=== PATIENT | male | born 1955 | race African-American/Black ===

== ENCOUNTER 2018-02-24 16:20 | Emergency (ER) | payer OTHER ==
[~2018-02-24] VITALS: Ht 170.2 cm; Wt 93.4 kg
[~2018-02-24 16:20] MED LIST: ADULT LOW DOSE81 MG PO; CRESTOR20 MG PO; GARLIC OIL1 EAC1 PO; KLOR-CON 10 ER10 MEQ; LASIX 40 MG TAB40 M2; LISINOPRIL5 MG PO; OMEGA-31000 MG PO; PLAVIX 75 MG TA75 MG PO; REGLAN 10 MG TA10 M1 PO; TOPROL XL100 MG PO; TRICOR145 MG PO; ZETIA10 MG PO
[2018-02-24 16:56] LABS: ABSOLUTE BASOPHILS 0.1 thou/uL (0.0-0.2); ABSOLUTE EOSINOPHILS 0.2 thou/uL (0.0-0.7); ABSOLUTE LYMPHOCYTES 2.7 thou/uL (0.8-5.3); ABSOLUTE MONOCYTES 0.5 thou/uL (0.0-1.2); ABSOLUTE NEUTROPHILS 4.2 thou/uL (1.6-8.1); EOSINOPHILS 3.2 %; HEMATOCRIT 42.5 % (42.0-52.0); LYMPHOCYTES 34.8 %; MCH 29.3 pg (26.0-34.0); MCV 88.6 fL (80.0-100.0); MONOCYTES 6.6 %; MPV 8.9 fl. (7.2-11.1); NUCLEATED RBCS 0 /100WBC; PLATELET COUNT* 174 thou/uL (150-400); POLYS 54.4 %; RBC 4.79 mil/uL (4.50-6.00); RDW-CV 13.4 % (10.5-14.5); WBC 7.7 thou/uL (4.0-11.0)
[2018-02-24 17:10] LABS: CALCIUM 8.9 mg/dL (8.5-10.1); CREATININE 1.9 mg/dL (0.6-1.3); POTASSIUM 3.8 mmol/L (3.5-5.1)
[2018-02-24 17:13] LABS: APTT 26.9 Seconds (25.0-31.3); INR 1.1
[2018-02-24 17:17] LABS: ALBUMIN 4.2 g/dL (3.4-5.0); TOTAL BILIRUBIN 0.4 mg/dL (<0.1-1.0); TOTAL PROTEIN 7.6 g/dL (6.4-8.2); TROPONIN-I LEVEL 0.26 ng/mL (<0.06)
[2018-02-24 19:03] VITALS: BP 105/64
--- NOTE | 2018-02-25 10:16 | EKG ---
[place] [address] ELECTROCARDIOGRAM REPORT Name: ALKA CAMEJO JR Room: [facility]#: [id number] Admission: 02/24/18 Attend Phys: Discharge: 02/24/18 Date of : 53 Report #: [id number] THIS REPORT FOR: //name// [facility] ED Test Date: 2018-02-24 Test Time: 16:23:36 Pat Name: ALKA CAMEJO Department: Room: Gender: M Healthcare Market Consultant: MORIAH : 1955 Requested By: India Goode Order Number: [id number] MD: Duke Pulido Measurements Intervals [place] Rate: 69 P: 67 [place]: 164 QRS: -23 QRSD: 94 T: -19 QT: 546 QTc: 585 Interpretive Statements Sinus rhythm Inferior infarct, old Probable anterior infarct, age indeterminate Prolonged QT interval Baseline wander in lead(s) I,III,aVL Compared to ECG 02/02/2013 00:17:27 Prolonged QT interval now present Left anterior fascicular block no longer present Myocardial infarct finding still present Electronically Signed On 02-25-2018 10:16:03 CDT by Duke Pulido [email or web address] <ELECTRONICALLY SIGNED> By: Duke Pulido MD, FACC 02/25/18 1016 1623 1623 Duke Pulido MD, [facility] /EPI
== END 2018-02-24 19:04 | disposition short-term general hospital (02) ==
LOC: M.ERS 16:20
PROVIDERS: Personal Emergency Response Attendant
DX: R74.8 Abnormal levels of other serum enzymes (principal); T82.198A Other mechanical complication of other cardiac electronic device, initial encounter; Y83.8 Other surgical procedures as the cause of abnormal reaction of the patient, or of later complication, without mention of misadventure at the time of the procedure; Y92.89 Other specified places as the place of occurrence of the external cause

== ENCOUNTER 2020-04-01 15:02 | Emergency (ER) | payer OTHER ==
[~2020-04-01] VITALS: Ht 170.2 cm; Wt 99.8 kg
[2020-04-01] MEDS ORDERED: FENOFIBRATE150 MG (15:15)
[2020-04-01] MEDS ORDERED: TRAMADOL 50 MG50 MG PO (15:16)
[2020-04-01] MEDS ORDERED: METFORMIN HCL500 MG PO (15:16)
[2020-04-01] MEDS ORDERED: RESTASIS1 EACH OPHTHALMIC (15:16)
[2020-04-01] MEDS ORDERED: ATENOLOL 25 MG25 M1 (15:16)
[2020-04-01 15:18] LABS: URINE BILIRUBIN NEGATIVE (Negative); URINE BLOOD NEGATIVE (Negative); URINE CLARITY CLEAR; URINE COLOR YELLOW; URINE GLUCOSE-RANDOM NEGATIVE (Negative); URINE KETONES NEGATIVE (Negative); URINE LEUKOCYTES-REFLEX NEGATIVE (Negative); URINE NITRITE-REFLEX NEGATIVE (Negative); URINE PROTEIN NEGATIVE (Negative); URINE UROBILINOGEN 0.2 E.U./dl (0.2-1.0)
[2020-04-01 15:52] LABS: ABSOLUTE EOSINOPHILS 0.1 thou/uL (0.0-0.7); ABSOLUTE LYMPHOCYTES 1.3 thou/uL (0.8-5.3); ABSOLUTE MONOCYTES 0.5 thou/uL (0.0-1.2); ABSOLUTE NEUTROPHILS 3.9 thou/uL (1.6-8.1); BASOPHILS 0.5 %; EOSINOPHILS 2.5 %; HEMATOCRIT 43.4 % (42.0-52.0); HEMOGLOBIN 14.7 gm/dL (14.0-18.0); LYMPHOCYTES 22.1 %; MCH 30.4 pg (26.0-34.0); MCHC 33.8 g/dL (28.0-37.0); MCV 89.8 fL (80.0-100.0); MONOCYTES 7.9 %; MPV 9.6 fl. (7.2-11.1); NUCLEATED RBCS 0 /100WBC; PLATELET COUNT* 143 thou/uL (150-400); RBC 4.83 mil/uL (4.50-6.00); RDW-CV 13.1 % (10.5-14.5); WBC 5.9 thou/uL (4.0-11.0)
[2020-04-01 15:56] LABS: CALCIUM 9.3 mg/dL (8.5-10.1); CREATININE 1.6 mg/dL (0.6-1.3); POTASSIUM 3.7 mmol/L (3.5-5.1)
[2020-04-01 16:02] LABS: ALBUMIN 4.6 g/dL (3.4-5.0); TOTAL BILIRUBIN 0.6 mg/dL (<0.1-1.0); TOTAL PROTEIN 7.8 g/dL (6.4-8.2)
[2020-04-01] MEDS ORDERED: ZOFRAN4 MG PO (19:10)
[2020-04-01 20:08] VITALS: BP 117/71
--- NOTE | 2020-04-03 15:33 | EKG ---
[place] [address] ELECTROCARDIOGRAM REPORT Name: ALKA CAMEJO JR Room: [facility]#: [id number] Admission: 04/01/20 Attend Phys: Discharge: 04/01/20 Date of : 53 Date of Service: 04/01/20 1540 Report #: [id number] THIS REPORT FOR: //name// 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 : 1955 Requested By: Melly Kaminski Order Number: [id number] MD: Rui Acevedo Measurements Intervals [place] Rate: 73 P: 63 [place]: 174 QRS: -53 QRSD: 88 T: 69 QT: 372 QTc: 410 Interpretive Statements Sinus rhythm Ventricular premature complex Probable left atrial enlargement Left anterior fascicular block Low voltage, extremity and precordial leads Anteroseptal infarct, age indeterminate Nonspecific T abnormalities, lateral leads Compared to ECG 02/24/2018 16:23:36 Ventricular premature complex(es) now present Left anterior fascicular block now present Low QRS voltage now present Myocardial infarct finding still present Electronically Signed On 04-03-2020 15:33:05 CDT by Rui Acevedo [email or web address] <ELECTRONICALLY SIGNED> By: Rui Acevedo MD, [facility] 04/03/20 1533 1540 1540 Rui Acevedo MD, [facility] /EPI
== END 2020-04-01 20:08 | disposition home or self-care (01) ==
LOC: M.ERS 15:02
PROVIDERS: Nurse Practitioner Family
DX: R11.2 Nausea with vomiting, unspecified (principal); Z20.828 Contact with and (suspected) exposure to other viral communicable diseases